=== PATIENT | female | born 1950 | race Caucasian/White ===

== ENCOUNTER → 2017-09-13 | Outpatient (CLI) | payer BC ==
--- NOTE | 2017-09-19 11:14 | RSPPFT ---
DATE OF PROCEDURE: 09/13/17 COMMENTS: VOLUMES DYNAMIC: FVC mildly reduced; FEV1 moderately reduced. STATIC: TLC, RV and FRC normal. FLOWS: FEV1% moderately reduced; FEF 25-75 severely reduced. DIFFUSION: Severely reduced. FLOW VOLUME LOOP: Pattern of variable intathoracic airways obstruction. IMPRESSION: Moderately severe obstructive ventilatory defect with no hyperinflation. There is a severe reduction in diffusion. Minimal improvement post-bronchodilator.
== END ==
LOC: PHRSP 09:27
PROVIDERS: ATTEND Internal Medicine
DX: J44.9 Chronic obstructive pulmonary disease, unspecified (principal)
CPT/HCPCS: 94060; 94620; 94726; 94729